=== PATIENT | female | born 1965 | race Caucasian/White ===

== ENCOUNTER 2017-05-11 09:12 | Emergency (ER) | payer OTHER, BC ==
[~2017-05-11] VITALS: Ht 170.1 cm; Wt 103.0 kg
[~2017-05-11 09:12] MED LIST: ANTIVERT25 MG PO; AUGMENTIN 875 M1 TAB PO; BENICAR40 MG PO; CARVEDILOL3.125 MG PO; CLARITIN10 MG PO; CORDROL20 MG PO; COREG12.5 MG PO; FIRST-OMEPR2 MG/1 ML PO; GLIPIZIDE5 MG PO; KENALOG0.025% TP; METFORMIN1000 MG PO; TAMIFLU75 MG PO; TYLENOL ES500 MG PO; TYLENOL W/CODEI1 TA2 PO; ULTRAM50 MG PO; VICODIN 5/500 505 MG PO; VITAMIN B121000 MC1 PO; VITAMIN D5000 I3 PO; Vicodin 5/500 505 MG PO
[2017-05-11 09:28] VITALS: BP 155/105
[2017-05-11 10:13] LABS: BASO # 0.1 10*3/uL (0.0-0.1); BASO % 0.7 % (0.0-1.0); EOS # 0.2 10*3/uL (0.0-0.4); HEMATOCRIT 38.2 % (37.0-47.0); HEMOGLOBIN 12.3 g/dl (12.0-16.0); LYMPH # 2.2 10*3/uL (1.3-4.4); LYMPH % 26.1 % (27.0-41.0); MEAN CELL VOLUME 85.7 fl (81.0-99.0); MEAN CORPUSCULAR HGB 27.6 pg (27.0-31.0); MEAN CORPUSCULAR HGB CONC 32.2 g/dl (33.0-37.0); MEAN PLATELET VOLUME 9.6 fl (9.6-12.3); MONO # 0.6 10*3/uL (0.1-1.0); MONO % 6.7 % (3.0-9.0); NEUT # 5.4 10*3/uL (2.3-7.9); NEUT % 64.1 % (47.0-73.0); PLATELET COUNT AUTOMATED 311 10*3/uL (130-400); RED BLOOD COUNT 4.46 10*6/uL (4.10-5.10); RED CELL DISTRI WIDTH 13.5 % (0-14.5); WHITE BLOOD COUNT 8.4 10*3/uL (4.8-10.8)
[2017-05-11 10:29] LABS: ALBUMIN 3.5 gm/dl (3.1-4.5); ALKALINE PHOSPHATASE 89 U/L (45-117); BUN 14 mg/dl (7-24); CHLORIDE 103 mmol/L (98-107); CREATININE 0.84 mg/dL (0.55-1.02); MAGNESIUM 1.7 mg/dL (1.5-2.1); POTASSIUM 3.8 mmol/L (3.5-5.1); SGOT/AST 15 IU/L (3-35); SGPT/ALT 26 U/L (12-78); SODIUM 140 mmol/L (136-145); TOTAL PROTEIN 7.4 gm/dL (6.4-8.2)
[2017-05-11 10:32] LABS: TROPONIN I < 0.015 ng/ml (<0.045)
[2017-05-11] MEDS ORDERED: NORCO 5-325 TA1 EACH PO (11:18)
== END 2017-05-11 11:39 | disposition home or self-care (01) ==
LOC: ED 09:12
PROVIDERS: Nurse Practitioner Family
DX: M79.605 Pain in left leg (principal); I48.91 Unspecified atrial fibrillation; M19.90 Unspecified osteoarthritis, unspecified site; Z88.6 Allergy status to analgesic agent; Z79.899 Other long term (current) drug therapy